=== PATIENT | female | born 2000 | race Caucasian/White ===

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

== ENCOUNTER 2018-01-24 13:21 | Emergency (ER) | payer OTHER ==
[~2018-01-24] VITALS: Ht 170.2 cm; Wt 67.6 kg
[~2018-01-24 13:21] MED LIST: CEPH-264 PO
[2018-01-24 13:28] VITALS: BP 135/79
[2018-01-24] MEDS ORDERED: ONDANSETRON ODT 4 MG TAB.RAPDIS ONE (13:43)
[2018-01-24 14:13] LABS: BILIRUBIN,URINE NEG (NEG); CLARITY,URINE CLEAR; COLOR,URINE STRAW; GLUCOSE,URINE NEG (NEG)
[2018-01-24 14:14] LABS: NITRITE,URINE NEG (NEG); UROBILINOGEN,URINE 0.2 mg/dL (0.2 mg/dL)
[2018-01-24] MEDS ORDERED: ONDANSETRON ODT 4 MG TAB.RAPDIS PO ONE (14:15)
[2018-01-24] MEDS ORDERED: ONDA4TAB7 PO (14:49)
--- NOTE | 2018-01-24 14:49 | PHYS DOC ---
Past History Past Medical History: No Pertinent History Past Surgical History: No Surgical History Alcohol Use: None Drug Use: None Adult General Chief Complaint Chief Complaint: NAUSEA/VOMITING/DIARRHEA HPI HPI Patient is a 17 year old female who presents with in cough and episodes of nausea and vomiting and diarrhea since yesterday. Patient states she had several episodes of nausea and vomiting yesterday that improved today and complaining of pain of epigastric and throat during episodes of vomiting. Patient denies sick contact, fever and chills, urinary symptoms, . Patient states she was not able to tolerated oral intake today. Review of Systems Review of Systems Constitutional: Denies fever or chills [] Eyes: Denies change in visual acuity, redness, or eye pain [] HENT: Denies nasal congestion or sore throat [] Respiratory: Denies cough or shortness of breath [] Cardiovascular: No additional information not addressed in HPI [] GI: Reports abdominal pain, nausea, vomiting, diarrhea [] : Denies dysuria or hematuria [] Musculoskeletal: Denies back pain or joint pain [] Integument: Denies rash or skin lesions [] Neurologic: Denies headache, focal weakness or sensory changes [] Endocrine: Denies polyuria or polydipsia [] All other systems were reviewed and found to be within normal limits, except as documented in this note. Current Medications Current Medications Current Medications Medications (Trade) Dose Ordered Sig/Carina Start Time Stop Time Status Last Admin Dose Admin Ondansetron HCl (Zofran Odt) 4 mg STK-MED ONCE 01/24/18 13:43 01/24/18 13:44 DC Allergies Allergies Allergies Coded Allergies Type Severity Reaction Last Updated Verified No Known Drug Allergies 11/15/17 No Physical Exam Physical Exam Constitutional: Well developed, well nourished, mild distress, non-toxic appearance. [] HENT: Normocephalic, atraumatic, oropharynx moist, no oral exudates, nose normal. [] Eyes: PERRLA, EOMI, conjunctiva normal, no discharge. [] Neck: Normal range of motion, no tenderness, supple, no stridor. [] Cardiovascular:Heart rate regular rhythm, no murmur [] Lungs & Thorax: Bilateral breath sounds clear to auscultation [] Abdomen: Bowel sounds normal, soft, no tenderness, no masses, no pulsatile masses. [] Skin: Warm, dry, no erythema, no rash. [] Back: No tenderness, no CVA tenderness. [] Extremities: No tenderness, no cyanosis, no clubbing, ROM intact, no edema. [] Neurologic: Alert and oriented X 3, normal motor function, normal sensory function, no focal deficits noted. [] Psychologic: Affect normal, judgement normal, mood normal. [] Current Patient Data Vital Signs Vital Signs Date Time Temp Pulse Resp B/P (MAP) Pulse Ox O2 Delivery O2 Flow Rate FiO2 01/24/18 13:28 98.7 86 18 100 Room Air Lab Results Laboratory Tests Test 01/24/18 13:59 Urine Collection Type Unknown Urine Color Straw Urine Clarity Clear Urine pH 7.0 Urine Specific [place] 1.010 Urine Protein Neg (NEG-TRACE) Urine Glucose (UA) Neg mg/dL (NEG) Urine Ketones (Stick) Neg mg/dL (NEG) Urine Blood Mod (NEG) Urine Nitrite Neg (NEG) Urine Bilirubin Neg (NEG) Urine Urobilinogen Dipstick 0.2 mg/dL (0.2 mg/dL) Urine Leukocyte Esterase Neg (NEG) EKG EKG [] Radiology/Procedures Radiology/Procedures [] Course & Med Decision Making Course & Med Decision Making Pertinent Labs reviewed. (See chart for details) Evaluation of patient in ER showed 17-year-old female patient with complaining of episodes of nausea and vomiting and diarrhea since yesterday that getting better today but still was not able to tolerate oral intake. Patient had unremarkable physical exam and nontender abdomen. Patient treated with sublingual Zofran with improvement of her condition. Patient tolerated oral intake in ER. Plan discharge patient home to diagnose of viral gastroenteritis. Prescription for Zofran was given. Dragon Disclaimer Dragon Disclaimer This electronic medical record was generated, in whole or in part, using a voice recognition dictation system. Departure Departure: Impression: Primary Impression: Acute gastroenteritis Disposition: HOME, SELF-CARE (at 1447) Condition: IMPROVED Referrals: PCP,UNKNOWN (PCP) Patient Instructions: Viral Gastroenteritis Additional Instructions: Drink plenty of liquids Follow-up with your primary care physician in 3-5 days Return to ER if not getting better May take [id number] Imodium as needed for diarrhea Scripts Ondansetron Hcl (ZOFRAN) 4 Mg Tablet 1 TAB PO Q6HRS for nausea and vomiting, #12 TAB Prov: KRYSTAL MCGEE MD 01/24/18 KRYSTAL MCGEE MD Jan 24, 2018 14:49
== END 2018-01-24 14:52 | disposition home or self-care (01) ==
LOC: ER 13:21
DX: K52.9 Noninfective gastroenteritis and colitis, unspecified (principal)
CPT/HCPCS: 81003; 99283; Q0162

== ENCOUNTER 2018-02-05 08:03 | Emergency (ER) | payer OTHER ==
[~2018-02-05] VITALS: Ht 170.2 cm; Wt 65.9 kg
[~2018-02-05 08:03] MED LIST changes: +ONDA4TAB7 PO
[2018-02-05 08:54] LABS: INFLUENZA A PATIENT NEGATIVE (NEGATIVE); INFLUENZA B PATIENT NEGATIVE (NEGATIVE)
--- NOTE | 2018-02-05 08:56 | PHYS DOC ---
Past History Past Medical History: No Pertinent History Past Surgical History: No Surgical History Alcohol Use: None Drug Use: None Adult General Chief Complaint Chief Complaint: FLU SYMPTOM HPI HPI Patient is a 17-year-old female who presents with complaint of fever, body aches , chills, dry cough, nasal congestion and sore throat for the last 3 days. Patient states that she recently had been treated for gastroenteritis. Patient states that fever has been as high as 102 at home and states that fever was not as bad today. She denies any further vomiting or diarrhea. She states that nothing is improving her symptoms. Review of Systems Review of Systems Constitutional: Complains of fever and chills [] HENT: Complains of congestion and sore throat [] Respiratory: Complains of cough without shortness of breath [] Cardiovascular: No additional information not addressed in HPI [] GI: Denies abdominal pain, nausea, vomiting or diarrhea [] Musculoskeletal: [place] of body aches [] Allergies Allergies Allergies Coded Allergies Type Severity Reaction Last Updated Verified No Known Drug Allergies 11/15/17 No Physical Exam Physical Exam Constitutional: Well developed, well nourished, no acute distress, non-toxic appearance. [] HENT: Normocephalic, atraumatic, bilateral external ears normal, oropharynx moist, no oral exudates, nose normal. [] Eyes: PERRLA, EOMI, conjunctiva normal, no discharge. [] Neck: Normal range of motion, no tenderness, supple, no stridor. [] Cardiovascular: Regular rate and rhythm, no murmur [] Lungs & Thorax: Bilateral breath sounds clear to auscultation [] Neurologic: Alert and oriented X 3. [] Current Patient Data Vital Signs Vital Signs Date Time Temp Pulse Resp B/P (MAP) Pulse Ox O2 Delivery O2 Flow Rate FiO2 02/05/18 08:05 99.2 106 20 98 Room Air EKG EKG [] Radiology/Procedures Radiology/Procedures [] Course & Med Decision Making Course & Med Decision Making Pertinent Labs and Imaging studies reviewed. (See chart for details) [] Dragon Disclaimer Dragon Disclaimer This electronic medical record was generated, in whole or in part, using a voice recognition dictation system. Departure Departure: Impression: Primary Impression: Upper respiratory infection Disposition: HOME, SELF-CARE Condition: STABLE Referrals: MILADYS ROMANO PA-C (PCP) Patient Instructions: Upper Respiratory Infection, Adult Scripts Naproxen (NAPROSYN) 500 Mg Tablet 1 TAB PO BID PRN for PAIN, #20 TAB Prov: CHINMAY PARADA Jr. DO 02/05/18 Benzonatate (TESSALON PERLE) 100 Mg Capsule 1 CAP PO TID PRN for COUGH, #21 CAP Prov: CHINMAY PARADA Jr. DO 02/05/18 Problem Qualifiers Primary Impression: Upper respiratory infection URI type: unspecified URI Qualified Codes: J06.9 - Acute upper respiratory infection, unspecified CHINMAY PARADA Jr. DO Feb 05, 2018 08:55
[2018-02-05] MEDS ORDERED: BENZ100C PO (08:58)
[2018-02-05] MEDS ORDERED: NAPR-683 PO (08:58)
[2018-02-05 09:12] VITALS: BP 109/66
== END 2018-02-05 09:14 | disposition home or self-care (01) ==
LOC: ER 08:03
DX: J06.9 Acute upper respiratory infection, unspecified (principal)
CPT/HCPCS: 87804; 99283

== ENCOUNTER 2018-06-27 10:30 | Emergency (ER) | payer OTHER ==
[~2018-06-27] VITALS: Ht 170.2 cm; Wt 65.8 kg
[~2018-06-27 10:30] MED LIST changes: +BENZ100C PO; +NAPR-683 PO
[2018-06-27 10:35] VITALS: BP 129/66
[2018-06-27 10:57] LABS: BASO % 0 % (0-3); EOS % 0 % (0-3); HEMATOCRIT 39.3 % (36.0-47.0); LYMPH # 0.5 x10^3/uL (1.0-4.8); LYMPH % 5 % (24-48); MEAN CORPUSCULAR HEMOGLOBIN 29 pg (25-35); MEAN CORPUSCULAR HGB CONC 33 g/dL (31-37); MEAN CORPUSCULAR VOLUME 87 fL (79-100); MONO # 0.9 x10^3/uL (0.0-1.1); MONO % 10 % (0-9); NEUT # 7.8 x10^3uL (1.8-7.7); NEUT % 84 % (31-73); PLATELET COUNT 209 x10^3/uL (140-400); RED BLOOD COUNT 4.52 x10^6/uL (3.50-5.40); WHITE BLOOD COUNT 9.3 x10^3/uL (4.0-11.0)
[2018-06-27] MEDS ORDERED: ACETAMINOPHEN 500 MG TABLET PO ONE (11:10)
[2018-06-27 11:13] LABS: ALBUMIN 3.6 g/dL (3.4-5.0); ALBUMIN/GLOBULIN RATIO 0.9 (1.0-1.7); CALCIUM 8.8 mg/dL (8.5-10.1); GFR 71.4; POTASSIUM 3.5 mmol/L (3.5-5.1); TOTAL BILIRUBIN 0.7 mg/dL (0.2-1.0); TOTAL PROTEIN 7.4 g/dL (6.4-8.2)
--- NOTE | 2018-06-27 11:24 | RAD ---
Portable chest, 06/27/2018: HISTORY: Cough The heart size and pulmonary vascularity are normal. A small dense nodule in the left suprahilar region is probably a granuloma. No acute infiltrate is seen. There is no evidence of pleural fluid. IMPRESSION: 1. Probable calcified granuloma in the left upper lobe. 2. No acute infiltrates. Electronically signed by: Tony Schmidt MD (06/27/2018 11:21 AM) [facility]
--- NOTE | 2018-06-27 11:30 | PHYS DOC ---
Past History Past Medical History: No Pertinent History Past Surgical History: No Surgical History Alcohol Use: None Drug Use: None Adult General Chief Complaint Chief Complaint: FEVER HPI HPI 17-year-old female presents with a fever. She states she's developed fever last night it's been constant through the day today. She does describe a sore throat runny nose dry cough and some body aches. She denies any neck pain. She's been eating drinking voiding and stooling normally. She denies any dysuria or gross hematuria. She states her immunizations are up-to-date she is in the [employer].[] Review of Systems Review of Systems Constitutional: Per history of present illness[] Eyes: Denies change in visual acuity, redness, or eye pain [] HENT: Reports nasal congestion and a sore throat[] Respiratory: Reports a dry cough[] Cardiovascular: No additional information not addressed in HPI [] GI: Denies abdominal pain, nausea, vomiting, bloody stools or diarrhea [] : Denies dysuria or hematuria [] Musculoskeletal: Denies back pain or joint pain [] Integument: Denies rash or skin lesions [] Neurologic: Denies headache, focal weakness or sensory changes [] Endocrine: Denies polyuria or polydipsia [] All other systems were reviewed and found to be within normal limits, except as documented in this note. Current Medications Current Medications Current Medications Medications (Trade) Dose Ordered Sig/[facility] Start Time Stop Time Status Last Admin Dose Admin Acetaminophen (Tylenol) 1,000 mg 1X ONCE 06/27/18 11:10 06/27/18 11:11 DC 06/27/18 10:59 1,000 MG Allergies Allergies Allergies Coded Allergies Type Severity Reaction Last Updated Verified No Known Drug Allergies 11/15/17 No Physical Exam Physical Exam Constitutional: Well developed, well nourished, appears acutely ill but nontoxi c[] HENT: Normocephalic, atraumatic, bilateral external ears normal, oropharynx moist, no oral exudates, nose normal. [] Eyes: PERRLA, EOMI, conjunctiva normal, no discharge. [] Neck: Normal range of motion, no tenderness, supple, no stridor, negative meningismus. [] Cardiovascular:Heart rate regular rhythm, no murmur [] Lungs & Thorax: Bilateral breath sounds clear to auscultation [] Abdomen: Bowel sounds normal, soft, no tenderness, no masses, no pulsatile masses. [] Skin: Warm, dry, no erythema, no rash. [] Back: No tenderness, no CVA tenderness. [] Extremities: No tenderness, no cyanosis, no clubbing, ROM intact, no edema. [] Neurologic: Alert and oriented X 3, normal motor function, normal sensory function, no focal deficits noted. [] Psychologic: Affect normal, judgement normal, mood normal. [] Current Patient Data Vital Signs Vital Signs Date Time Temp Pulse Resp B/P (MAP) Pulse Ox O2 Delivery O2 Flow Rate FiO2 06/27/18 10:35 103.1 122 22 99 Room Air Lab Results Laboratory Tests Test 06/27/18 10:44 White Blood Count 9.3 x10^3/uL (4.0-11.0) Red Blood Count 4.52 x10^6/uL (3.50-5.40) Hemoglobin 13.0 g/dL (12.0-15.5) Hematocrit 39.3 % (36.0-47.0) Mean Corpuscular Volume 87 fL (79-100) Mean Corpuscular Hemoglobin 29 pg (25-35) Mean Corpuscular Hemoglobin Concent 33 g/dL (31-37) Red Cell Distribution Width 13.0 % (11.5-14.5) Platelet Count 209 x10^3/uL (140-400) Neutrophils (%) (Auto) 84 % (31-73) H Lymphocytes (%) (Auto) 5 % (24-48) L Monocytes (%) (Auto) 10 % (0-9) H Eosinophils (%) (Auto) 0 % (0-3) Basophils (%) (Auto) 0 % (0-3) Neutrophils # (Auto) 7.8 x10^3uL (1.8-7.7) H Lymphocytes # (Auto) 0.5 x10^3/uL (1.0-4.8) L Monocytes # (Auto) 0.9 x10^3/uL (0.0-1.1) Eosinophils # (Auto) 0.0 x10^3/uL (0.0-0.7) Basophils # (Auto) 0.0 x10^3/uL (0.0-0.2) Sodium Level 135 mmol/L (136-145) L Potassium Level 3.5 mmol/L (3.5-5.1) Chloride Level 100 mmol/L (98-107) Carbon Dioxide Level 23 mmol/L (21-32) Anion Gap 12 (6-14) Blood Urea Nitrogen 11 mg/dL (7-20) Creatinine 1.0 mg/dL (0.6-1.0) Estimated GFR (Cockcroft-Gault) 71.4 BUN/Creatinine Ratio 11 (6-20) Glucose Level 136 mg/dL (70-99) H Calcium Level 8.8 mg/dL (8.5-10.1) Total Bilirubin 0.7 mg/dL (0.2-1.0) Aspartate Amino Transferase (AST) 73 U/L (15-37) H Alanine Aminotransferase (ALT) 38 U/L (14-59) Alkaline Phosphatase 72 U/L (46-116) Total Protein 7.4 g/dL (6.4-8.2) Albumin 3.6 g/dL (3.4-5.0) Albumin/Globulin Ratio 0.9 (1.0-1.7) L EKG EKG [] Radiology/Procedures Radiology/Procedures [] Impressions: REASON: fever, COUGH x 3 DAYS PROCEDURE: CHEST AP ONLY Portable chest, 06/27/2018: HISTORY: Cough The heart size and pulmonary vascularity are normal. A small dense nodule in the left suprahilar region is probably a granuloma. No acute infiltrate is seen. There is no evidence of pleural fluid. IMPRESSION: 1. Probable calcified granuloma in the left upper lobe. 2. No acute infiltrates. Course & Med Decision Making Course & Med Decision Making Pertinent Labs and Imaging studies reviewed. (See chart for details) [ED course: Evaluation reveals a 17-year-old female present with a fever and upper respiratory type symptoms. Her strep test a flu test were all negative. I believe her fever is related to her upper respiratory/viral syndrome symptoms. A urinalysis was also checked and it did show a few white cells and some bacteria so go ahead and treat her with antibiotics for the urinary tract infection. She did feel much better after fluids Toradol and Tylenol while she was in the emergency department.] Dragon Disclaimer Dragon Disclaimer This electronic medical record was generated, in whole or in part, using a voice recognition dictation system. Departure Departure: Impression: Primary Impression: Viral upper respiratory infection Additional Impression: Urinary tract infection Disposition: 01 HOME, SELF-CARE Condition: IMPROVED Referrals: MILADYS ROMANO PA-C (PCP) Patient Instructions: Urinary Tract Infection, Viral Infections, Viral Pharyngitis Additional Instructions: Take Tylenol or Motrin for your fever. Return to the emergency department with any new or concerning symptoms Scripts Cephalexin (CEPHALEXIN) 500 Mg Tablet 1 TAB PO TID for urinary tract infection, #15 TAB Prov: CAM NAIR DO 06/27/18 Problem Qualifiers Additional Impression: Urinary tract infection Urinary tract infection type: acute cystitis Hematuria presence: without hematuria Qualified Codes: N30.00 - Acute cystitis without hematuria CAM NAIR DO June 27, 2018 11:30
[2018-06-27 12:14] LABS: INFLUENZA A PATIENT NEGATIVE (NEGATIVE); INFLUENZA B PATIENT NEGATIVE (NEGATIVE)
[2018-06-27 12:45] LABS: BACTERIA,URINE MOD /HPF (0-FEW); BILIRUBIN,URINE NEG (NEG); CLARITY,URINE CLOUDY; COLOR,URINE YELLOW; GLUCOSE,URINE NEG (NEG); NITRITE,URINE NEG (NEG); RBC,URINE OCC /HPF (0-2); UROBILINOGEN,URINE 0.2 mg/dL (0.2 mg/dL)
[2018-06-27 12:46] LABS: SQUAMOUS EPITHELIAL CELL,UR MOD /LPF
[2018-06-27] MEDS ORDERED: CEPH500T PO (12:52)
== END 2018-06-27 13:21 | disposition home or self-care (01) ==
LOC: ER 10:30
DX: J06.9 Acute upper respiratory infection, unspecified (principal); B97.89 Other viral agents as the cause of diseases classified elsewhere; N30.00 Acute cystitis without hematuria
CPT/HCPCS: 36415; 71045; 80053; 81001; 85025; 87070; 87086; 87804; 87880; 99285

== ENCOUNTER 2018-08-29 16:03 | Emergency (ER) | payer OTHER ==
[~2018-08-29] VITALS: Ht 170.2 cm; Wt 66.0 kg
[~2018-08-29 16:03] MED LIST changes: +CEPH500T PO
[2018-08-29 16:24] VITALS: BP 132/77
--- NOTE | 2018-08-29 16:32 | PHYS DOC ---
Past History Past Medical History: No Pertinent History Past Surgical History: No Surgical History Alcohol Use: None Drug Use: None Adult General Chief Complaint Chief Complaint: VAGINAL PROBLEM HPI HPI Patient is a 17-year-old female who presents with complaint of urinary discomfort and frequency for the last couple of days. She denies any fever, nausea, vomiting or diarrhea. She denies any abdominal pain or back pain.[] Review of Systems Review of Systems Constitutional: Denies fever or chills [] Respiratory: Denies cough or shortness of breath [] Cardiovascular: No additional information not addressed in HPI [] GI: Denies abdominal pain, nausea, vomiting or diarrhea [] : Positive dysuria[] Musculoskeletal: Denies back pain or joint pain [] Allergies Allergies Allergies Coded Allergies Type Severity Reaction Last Updated Verified No Known Drug Allergies 11/15/17 No Physical Exam Physical Exam Constitutional: Well developed, well nourished, no acute distress, non-toxic appearance. [] Cardiovascular:Heart rate regular rhythm, no murmur [] Lungs & Thorax: Bilateral breath sounds clear to auscultation [] Abdomen: Bowel sounds normal, soft, no tenderness. [] Skin: Warm, dry, no erythema, no rash. [] Current Patient Data Vital Signs Vital Signs Date Time Temp Pulse Resp B/P (MAP) Pulse Ox O2 Delivery O2 Flow Rate FiO2 08/29/18 16:24 99.0 80 16 100 Room Air EKG EKG [] Radiology/Procedures Radiology/Procedures [] Course & Med Decision Making Course & Med Decision Making Pertinent Labs and Imaging studies reviewed. (See chart for details) [] Dragon Disclaimer Dragon Disclaimer This electronic medical record was generated, in whole or in part, using a voice recognition dictation system. Departure Departure: Impression: Primary Impression: UTI (urinary tract infection) Disposition: HOME, SELF-CARE Condition: STABLE Referrals: MILADYS ROMANO PA-C (PCP) Patient Instructions: Urinary Tract Infection Scripts Phenazopyridine Hcl (PYRIDIUM) 100 Mg Tablet 100 MG PO TID PRN for URINARY PAIN, #12 TAB Prov: CHINMAY PARADA Jr. DO 08/29/18 Sulfamethoxazole/Trimethoprim (BACTRIM DS TABLET) 1 Each Tablet 1 TAB PO BID for infection, #14 TAB Prov: CHINMAY PARADA Jr. DO 08/29/18 Problem Qualifiers Primary Impression: UTI (urinary tract infection) Urinary tract infection type: site unspecified Hematuria presence: without hematuria Qualified Codes: N39.0 - Urinary tract infection, site not specified CHINMAY PARADA Jr. DO Aug 29, 2018 16:32
[2018-08-29 16:56] LABS: BILIRUBIN,URINE NEG (NEG); CLARITY,URINE CLOUDY; COLOR,URINE YELLOW; GLUCOSE,URINE NEG (NEG)
[2018-08-29 16:57] LABS: BACTERIA,URINE MOD /HPF (0-FEW); NITRITE,URINE NEG (NEG); SQUAMOUS EPITHELIAL CELL,UR MOD /LPF; UROBILINOGEN,URINE 0.2 mg/dL (0.2 mg/dL)
[2018-08-29] MEDS ORDERED: SULF1TAB24 PO (17:16)
[2018-08-29] MEDS ORDERED: PHEN100T82 PO (17:16)
== END 2018-08-29 17:24 | disposition home or self-care (01) ==
LOC: ER 16:03
DX: N39.0 Urinary tract infection, site not specified (principal)
CPT/HCPCS: 81001; 81025; 87086; 99284

== ENCOUNTER 2018-11-16 19:32 | Emergency (ER) | payer OTHER ==
[~2018-11-16] VITALS: Ht 170.2 cm; Wt 66.0 kg
[~2018-11-16 19:32] MED LIST changes: +PHEN100T82 PO; +SULF1TAB24 PO
[2018-11-16 19:35] VITALS: BP 102/73
--- NOTE | 2018-11-16 20:43 | PHYS DOC ---
Past History Past Medical History: No Pertinent History Past Surgical History: No Surgical History Alcohol Use: None Drug Use: None Adult General Chief Complaint Chief Complaint: KNEE INJURY HPI HPI 18-year-old female presents with left knee pain. Patient was outside running and was on a patch funny sidewalk and she twisted her knee and fell to the ground. She heard a pop as she was falling. She now has left knee discomfort. She can walk, but has a limp. No previous knee injuries. She does not have any other complaints. Review of Systems Review of Systems Constitutional: Denies fever or chills [] Eyes: Denies change in visual acuity, redness, or eye pain [] HENT: Denies nasal congestion or sore throat [] Respiratory: Denies cough or shortness of breath [] Cardiovascular: No additional information not addressed in HPI [] GI: Denies abdominal pain, nausea, vomiting, bloody stools or diarrhea [] : Denies dysuria or hematuria [] Musculoskeletal: left knee pain[] Integument: Denies rash or skin lesions [] Neurologic: Denies headache, focal weakness or sensory changes [] Endocrine: Denies polyuria or polydipsia [] All other systems were reviewed and found to be within normal limits, except as documented in this note. Allergies Allergies Allergies Coded Allergies Type Severity Reaction Last Updated Verified No Known Drug Allergies 11/15/17 No Physical Exam Physical Exam Constitutional: Well developed, well nourished, no acute distress, non-toxic appearance. [] HENT: Normocephalic, atraumatic, bilateral external ears normal, oropharynx moist, no oral exudates, nose normal. [] Eyes: PERRLA, EOMI, conjunctiva normal, no discharge. [] Neck: Normal range of motion, no tenderness, supple, no stridor. [] Cardiovascular:Heart rate regular rhythm, no murmur [] Lungs & Thorax: Bilateral breath sounds clear to auscultation [] Abdomen: Bowel sounds normal, soft, no tenderness, no masses, no pulsatile masses. [] Skin: Warm, dry, no erythema, no rash. [] Back: No tenderness, no CVA tenderness. [] Extremities: Tenderness over medial left knee, solid and feel of ligaments, no significant swelling, no obvious deformity, no pain with varus and valgus stress. Negative anterior and posterior drawer[] Neurologic: Alert and oriented X 3, normal motor function, normal sensory function, no focal deficits noted. [] Psychologic: Affect normal, judgement normal, mood normal. [] EKG EKG [] Radiology/Procedures Radiology/Procedures [] Impressions: Preliminary interpretation left knee: No obvious fracture or dislocation. Course & Med Decision Making Course & Med Decision Making Pertinent Labs and Imaging studies reviewed. (See chart for details) The patient's knee x-rays negative for fracture dislocation. Based on my exam, I believe the patient sprained her knee. It is possible that she has a meniscus injury. I have advised supportive care at this time. She will take ibuprofen, rest, ice, and use compression for comfort if desired. If her condition does not rapidly improve the next couple of days, she should seek orthopedic consult for further evaluation. She is stable for discharge at this time. [] Dragon Disclaimer Dragon Disclaimer This electronic medical record was generated, in whole or in part, using a voice recognition dictation system. Departure Departure: Impression: Primary Impression: Left knee sprain Disposition: 01 HOME/RESIDENCE PRIOR TO ADM Condition: STABLE Referrals: MILADYS ROMANO PA-C (PCP) Patient Instructions: Medial Collateral Knee Ligament Sprain with Phase I Rehab-SportsMed Problem Qualifiers Primary Impression: Left knee sprain Encounter type: initial encounter Involved ligament of knee: medial collateral ligament Qualified Codes: S83.412A - Sprain of medial collateral ligament of left knee, initial encounter ESTEE MCMAHON DO Nov 16, 2018 20:43
--- NOTE | 2018-11-16 21:22 | RAD ---
KNEE LEFT 4V History: Twisted, heard a pop Comparison: None. Findings: 4 views of the left knee are submitted. No acute fracture or dislocation is identified by radiographs. Impression: 1. No acute osseous abnormality is identified by radiographs. Electronically signed by: Emmanuel Davis MD (11/16/2018 9:19 PM) [facility]
== END 2018-11-16 21:15 | disposition home or self-care (01) ==
LOC: ER 19:32
DX: S83.412A Sprain of medial collateral ligament of left knee, initial encounter (principal); W01.0XXA Fall on same level from slipping, tripping and stumbling without subsequent striking against object, initial encounter; Y93.02 Activity, running; Y92.480 Sidewalk as the place of occurrence of the external cause; Y99.8 Other external cause status
CPT/HCPCS: 73564; 99284

== ENCOUNTER 2019-09-21 17:08 | Emergency (ER) | payer OTHER ==
[~2019-09-21] VITALS: Ht 170.2 cm; Wt 68.7 kg
--- NOTE | 2019-09-21 17:27 | PHYS DOC ---
Past History Past Medical History: No Pertinent History, Other Additional Past Medical Histor: L KNEE TORN LIGAMENT (ALTA BAUTISTA DO) Past Surgical History: No Surgical History (ALTA BAUTISTA DO) Alcohol Use: None Drug Use: None (ALTA BAUTISTA DO) Adult General Chief Complaint Chief Complaint: NAUSEA/VOMITING/DIARRHEA HPI HPI Patient is a [age] year old [sex] who presents with [] (LILYALTA ) HPI Patient is a 18 yr old female who presents above hx and complaints of GI symptoms of diarrhea. Pt. states she has had several stools today which are loose. Also concerned because she is for the first time. Patient denies any intake of bad food. No recent travel. Is on city water. Patient states symptoms started after eating chicken yesterday. No one else got sick eating the same food. No history of significant ill contacts. No history immunosuppression. Patient is on vitamins. Has not follow-up with an OB yet. Patient follows at [facility] for care. There is no one in the family unit has traveled or been overseas recently. No animal contacts. Patient is normally healthy. Patient does have a follow-up appointment with MEDICAL RECORDS TECHNICIAN on Saturday. Patient has not had any contact with individuals with GI illnesses such as penitentiary patients or medical facilities. No history of C. difficile. No history of family history of colitis or inflammatory bowel disease. No history of vaginal bleeding. No history of STDs. Has had 3 lifetime sexual partners. (DAREK QUINTERO MD) Review of Systems Review of Systems Constitutional: Denies fever or chills [] Eyes: Denies change in visual acuity, redness, or eye pain [] HENT: Denies nasal congestion or sore throat [] Respiratory: Denies cough or shortness of breath [] Cardiovascular: No additional information not addressed in HPI [] GI: Denies abdominal pain, nausea, vomiting, bloody stools or diarrhea [] : Denies dysuria or hematuria [] Musculoskeletal: Denies back pain or joint pain [] Integument: Denies rash or skin lesions [] Neurologic: Denies headache, focal weakness or sensory changes [] Endocrine: Denies polyuria or polydipsia [] All other systems were reviewed and found to be within normal limits, except as documented in this note. (ALTA BAUTISTA DO) Review of Systems Complaints of abdomen discomfort- diarrhea stools. (DAREK QUINTERO MD) Family History Family History Noncontributory (DAREK QUINTERO MD) Current Medications Current Medications See nursing for home meds (DAREK QUINTERO MD) Allergies Allergies Allergies Coded Allergies Type Severity Reaction Last Updated Verified No Known Drug Allergies 11/15/17 No (ALTA BAUTISTA DO) Allergies No known drug allergies (DAREK QUINTERO MD) Physical Exam Physical Exam Constitutional: Well developed, well nourished, no acute distress, non-toxic appearance. [] HENT: Normocephalic, atraumatic, bilateral external ears normal, oropharynx moist, no oral exudates, nose normal. [] Eyes: PERRLA, EOMI, conjunctiva normal, no discharge. [] Neck: Normal range of motion, no tenderness, supple, no stridor. [] Cardiovascular:Heart rate regular rhythm, no murmur [] Lungs & Thorax: Bilateral breath sounds clear to auscultation [] Abdomen: Bowel sounds normal, soft, no tenderness, no masses, no pulsatile masses. [] Skin: Warm, dry, no erythema, no rash. [] Back: No tenderness, no CVA tenderness. [] Extremities: No tenderness, no cyanosis, no clubbing, ROM intact, no edema. [] Neurologic: Alert and oriented X 3, normal motor function, normal sensory function, no focal deficits noted. [] Psychologic: Affect normal, judgement normal, mood normal. [] (ALTA BAUTISTA DO) Physical Exam Re-exam at shift change 1730. No acute findings,other than hyperactive bowel sounds. Mild rebound to epigastric area. No psoas. No edema. + 2 DTR patella. (DAREK QUINTERO MD) EKG EKG [] (ALTA BAUTISTA DO) Radiology/Procedures Radiology/Procedures [] (ALTA BAUTISTA DO) Course & Med Decision Making Course & Med Decision Making Patient to stay on a clear fluid diet only for the next 2 days. No solids or milk products.. Patient take Tylenol for discomfort. Continue vitamins. Follow-up stool cultures. Return if any concerns. Keep follow-up with MEDICAL RECORDS TECHNICIAN this coming Saturday. Impression: 1. Gravid-early beta-hCG is 38 2. Blood type O+ 3. Hemoglobin 13.9 4. Diarrhea-suspect viral (DAREK QUINTERO MD) Dragon Disclaimer Dragon Disclaimer This electronic medical record was generated, in whole or in part, using a voice recognition dictation system. (ALTA BAUTISTA DO) Departure Departure: Disposition: 01 HOME/RESIDENCE PRIOR TO ADM Condition: STABLE Referrals: MILADYS ROMANO PA-C (PCP) Scripts Oxycodone Hcl/Acetaminophen (PERCOCET 5-325 MG TABLET ) 1 Each Tablet 1 TAB PO PRN QID PRN for PAIN MDD 4 Tablet(s) for 30 Days, #30 TAB 0 Refills Prov: DAREK QUINTERO MD 09/21/19 Justification of Admission: Justification of Admission: Justification of Admission Dx: N/A (DAREK QUINTERO MD) Emmanuelon Disclaimer This chart was dictated in whole or in part using Voice Recognition software in a busy, high-work load, and often noisy Emergency Department environment. It may contain unintended and wholly unrecognized errors or omissions. (DAREK QUINTERO MD) Dragon Disclaimer This chart was dictated in whole or in part using Voice Recognition software in a busy, high-work load, and often noisy Emergency Department environment. It may contain unintended and wholly unrecognized errors or omissions. (ALTA BAUTISTA DO) ALTA BAUTISTA DO Sep 21, 2019 17:27 DAREK QUINTERO MD Sep 21, 2019 17:55
[2019-09-21] MEDS ORDERED: IV RINGERS SOLUTION,LACTATED 1,000 ML IV SCH (17:55)
[2019-09-21 18:57] LABS: BASO % 0 % (0-3); EOS % 0 % (0-3); HEMOGLOBIN 13.9 g/dL (12.0-15.5); LYMPH # 0.7 x10^3/uL (1.0-4.8); LYMPH % 11 % (24-48); MEAN CORPUSCULAR HEMOGLOBIN 30 pg (25-35); MEAN CORPUSCULAR HGB CONC 33 g/dL (31-37); MEAN CORPUSCULAR VOLUME 89 fL (79-100); MONO # 0.4 x10^3/uL (0.0-1.1); MONO % 6 % (0-9); NEUT # 5.6 x10^3uL (1.8-7.7); NEUT % 84 % (31-73); PLATELET COUNT 202 x10^3/uL (140-400); RED CELL DISTRIBUTION WIDTH 13.8 % (11.5-14.5); WHITE BLOOD COUNT 6.7 x10^3/uL (4.0-11.0)
[2019-09-21 19:04] LABS: CALCIUM 8.8 mg/dL (8.5-10.1); CREATININE 0.9 mg/dL (0.6-1.0); GFR 79.8; POTASSIUM 3.6 mmol/L (3.5-5.1)
[2019-09-21 19:08] LABS: ALBUMIN 4.2 g/dL (3.4-5.0); DIRECT BILIRUBIN 0.2 mg/dL (0.0-0.2); MAGNESIUM 1.9 mg/dL (1.8-2.4); TOTAL PROTEIN 7.6 g/dL (6.4-8.2)
[2019-09-21 19:31] LABS: BARBITURATES NEG (NEG); BENZODIAZEPINES NEG (NEG); CANNABINOIDS NEG (NEG); COCAINE NEG (NEG); METHADONE NEG (NEG); OPIATES NEG (NEG); PHENCYCLIDINE NEG (NEG)
[2019-09-21 19:33] LABS: BACTERIA,URINE FEW /HPF (0-FEW); BILIRUBIN,URINE NEG (NEG); CLARITY,URINE HAZY; COLOR,URINE YELLOW; GLUCOSE,URINE NEG (NEG); NITRITE,URINE NEG (NEG); SQUAMOUS EPITHELIAL CELL,UR MANY /LPF; UROBILINOGEN,URINE 0.2 mg/dL (0.2 mg/dL)
[2019-09-21 19:34] LABS: AMPHETAMINE/METHAMPHETAMINE NEG (NEG)
[2019-09-21 20:11] VITALS: BP 118/88
[2019-09-21] MEDS ORDERED: OXYC1TAB15 PO (20:14)
== END 2019-09-21 20:27 | disposition home or self-care (01) ==
LOC: ER 17:08
DX: O26.891 Other specified pregnancy related conditions, first trimester (principal); R19.7 Diarrhea, unspecified; Z3A.01 Less than 8 weeks gestation of pregnancy
CPT/HCPCS: 36415; 80048; 80076; 80307; 81001; 82550; 83690; 83735; 84443; 84484; 84702; 85025; 85610; 85730; 86900; 86901; 87086; 87493; 96360; 96361; 99283; J7120

== ENCOUNTER 2019-09-23 22:12 | Emergency (ER) | payer OTHER ==
[~2019-09-23] VITALS: Ht 170.2 cm; Wt 68.7 kg
[~2019-09-23 22:12] MED LIST changes: +OXYC1TAB15 PO
--- NOTE | 2019-09-23 22:39 | PHYS DOC ---
Past History Past Medical History: No Pertinent History, Other Additional Past Medical Histor: L KNEE TORN LIGAMENT Past Surgical History: No Surgical History Alcohol Use: None Drug Use: None General Adult EDM: Chief Complaint: VAGINAL BLEEDING HPI: HPI: ".. I am still having bleeding and some cramping...." Patient is a 18 year old female who presents with above hx and complaints of threaten . Pt. seen on 09/21/19. At that time patient was diagnosed with threatened . Beta-hCG was 38, blood type was O+, hemoglobin was 13.9, also had some complaints of diarrhea felt to be viral. Ultrasound that time showed no heart rates and appeared to have intrauterine gestational sacs. [facility] [place]. Patient returns tonight with complaints of continued bleeding and some cramping.. See prior ED visit and my exam/history on 09/21/2019. Cultures from previous exam not currently available as yet. Review of Systems: Review of Systems: Constitutional: Denies fever or chills Eyes: Denies change in visual acuity HENT: Denies nasal congestion or sore throat Respiratory: Denies cough or shortness of breath Cardiovascular: Denies chest pain or edema GI: Complains of abdomen cramping/ abdominal pain, nausea. Vaginal bleeding. Denies, vomiting, bloody stools or diarrhea (prior history of diarrhea has resolved) : Denies dysuria Musculoskeletal: Denies back pain or joint pain Integument: Denies rash Neurologic: Denies headache, focal weakness or sensory changes Endocrine: Denies polyuria or polydipsia Lymphatic: Denies swollen glands Psychiatric: Denies depression or anxiety Heart Score: Risk Factors: Risk Factors: DM, Current or recent (<one month) smoker, HTN, HLP, family history of CAD, obesity. Risk Scores: Score 0 - 3: 2.5% MACE over next 6 weeks - Discharge Home Score 4 - 6: 20.3% MACE over next 6 weeks - Admit for Clinical Observation Score 7 - 10: 72.7% MACE over next 6 weeks - Early Invasive Strategies Family History: Family History: Noncontributory Current Medications: Current Meds: See nursing for home meds Allergies: Allergies: Allergies Coded Allergies Type Severity Reaction Last Updated Verified No Known Drug Allergies 11/15/17 No Physical Exam: PE: Constitutional: Well developed, well nourished, moderate acute distress, non- toxic appearance. [] HENT: Normocephalic, atraumatic, bilateral external ears normal, oropharynx moist, no oral exudates, nose normal. [] Eyes: PERRLA, EOMI, conjunctiva normal, no discharge. [] Neck: Normal range of motion, no tenderness, supple, no stridor. [] Cardiovascular:Heart rate regular rhythm, no murmur [] Lungs & Thorax: Bilateral breath sounds clear to auscultation [] Abdomen: Bowel sounds normal, soft, mild generalized lower abdomen tenderness, no masses, no pulsatile masses. [] Pelvic exam shows some increased bleeding from office. Office is still closed. No cervical motion tenderness. Rectal exam hard stool. Mild rebound to the lower abdomen. Skin: Warm, dry, no erythema, no rash. [] Back: No tenderness, no CVA tenderness. [] Extremities: No tenderness, no cyanosis, no clubbing, ROM intact, no edema. [] No psoas sign. Neurologic: Alert and oriented X 3, normal motor function, normal sensory function, no focal deficits noted. [] Psychologic: Affect anxious, judgement normal, mood depressed and tearful] EKG: EKG: [] Radiology/Procedures: Radiology/Procedures: [] Course & Med Decision Making: Course & Med Decision Making Pertinent Labs and Imaging studies reviewed. (See chart for details) Advised patient her beta-hCG is less than 5. Hemoglobin is 12. Patient to continue vitamins. Patient follow-up pending cultures. Patient follow-up with COUNTER CONTROL OPERATOR. Advised patient that she is in the process of miscarriage and may have further bleeding and maybe passage of tissue. Continue Tylenol for pain. Return if any concerns. Continue pad counts. Impression 1. demise 2. Miscarriage [] Dragon Disclaimer: Dragon Disclaimer: This electronic medical record was generated, in whole or in part, using a voice recognition dictation system. Departure Departure: Disposition: 01 HOME/RESIDENCE PRIOR TO ADM Condition: STABLE Referrals: MILADYS ROMANO PA-C (PCP) Justification of Admission: Justification of Admission: Justification of Admission Dx: N/A Dragon Disclaimer This chart was dictated in whole or in part using Voice Recognition software in a busy, high-work load, and often noisy Emergency Department environment. It may contain unintended and wholly unrecognized errors or omissions. DAREK QUINTERO MD Sep 23, 2019 22:39
[2019-09-23] MEDS ORDERED: IV RINGERS SOLUTION,LACTATED 1,000 ML IV SCH (22:41)
[2019-09-23 23:41] LABS: BASO % 0 % (0-3); EOS # 0.1 x10^3/uL (0.0-0.7); EOS % 2 % (0-3); HEMATOCRIT 36.1 % (36.0-47.0); LYMPH # 1.1 x10^3/uL (1.0-4.8); LYMPH % 17 % (24-48); MEAN CORPUSCULAR HEMOGLOBIN 30 pg (25-35); MEAN CORPUSCULAR HGB CONC 33 g/dL (31-37); MEAN CORPUSCULAR VOLUME 89 fL (79-100); MONO # 0.6 x10^3/uL (0.0-1.1); MONO % 9 % (0-9); NEUT # 4.6 x10^3uL (1.8-7.7); NEUT % 72 % (31-73); PLATELET COUNT 181 x10^3/uL (140-400); RED BLOOD COUNT 4.06 x10^6/uL (3.50-5.40); RED CELL DISTRIBUTION WIDTH 13.5 % (11.5-14.5); WHITE BLOOD COUNT 6.5 x10^3/uL (4.0-11.0)
[2019-09-23 23:47] LABS: BARBITURATES NEG (NEG); BENZODIAZEPINES NEG (NEG); CANNABINOIDS NEG (NEG); COCAINE NEG (NEG); METHADONE NEG (NEG); OPIATES NEG (NEG); PHENCYCLIDINE NEG (NEG)
[2019-09-23 23:48] LABS: CALCIUM 8.4 mg/dL (8.5-10.1); CREATININE 0.8 mg/dL (0.6-1.0); GFR 91.4; POTASSIUM 3.4 mmol/L (3.5-5.1)
[2019-09-23 23:50] LABS: AMPHETAMINE/METHAMPHETAMINE NEG (NEG)
[2019-09-24 00:05] LABS: BACTERIA,URINE FEW /HPF (0-FEW); BILIRUBIN,URINE NEG (NEG); CLARITY,URINE HAZY; COLOR,URINE YELLOW; GLUCOSE,URINE NEG (NEG); NITRITE,URINE NEG (NEG); RBC,URINE >40 /HPF (0-2); SQUAMOUS EPITHELIAL CELL,UR FEW /LPF; UROBILINOGEN,URINE 0.2 mg/dL (0.2 mg/dL)
[2019-09-24 01:20] VITALS: BP 124/66
[2019-09-26 00:07] LABS: CHLAMYDIA PROBE Negative (Negative)
== END 2019-09-24 01:45 | disposition home or self-care (01) ==
LOC: ER 22:12
DX: O36.4XX0 Maternal care for intrauterine death, not applicable or unspecified (principal); O03.9 Complete or unspecified spontaneous abortion without complication; R19.7 Diarrhea, unspecified; Z3A.00 Weeks of gestation of pregnancy not specified
CPT/HCPCS: 36415; 80048; 80307; 81001; 81025; 83735; 84702; 85025; 87086; 87491; 87591; 96360; 96361; 99285; J7120

== ENCOUNTER 2021-03-06 11:21 | Emergency (ER) | payer OTHER ==
[~2021-03-06] VITALS: Ht 170.2 cm; Wt 74.9 kg
[2021-03-06 11:39] VITALS: BP 124/66
[2021-03-06] MEDS ORDERED: IBUPROFEN 600 MG TABLET. PO ONE (12:00)
[2021-03-06 13:23] LABS: INFLUENZA A PATIENT NEGATIVE (NEGATIVE); INFLUENZA B PATIENT NEGATIVE (NEGATIVE)
[2021-03-06] MEDS ORDERED: BENZ-8 PO (13:23)
--- NOTE | 2021-03-06 13:23 | PHYS DOC ---
Past History Past Medical History: Other Additional Past Medical Histor: L KNEE TORN LIGAMENT (MAGGIE SCANLON) Past Surgical History: No Surgical History (MAGGIE SCANLON) Smoking: Non-smoker Alcohol Use: None Drug Use: None (MAGGIE SCANLON) General Adult EDM: Chief Complaint: CONGESTION HPI: HPI: Patient is a 20 year old female who presents with 2 day history of fever, headache, congestion, sore throat, cough. Patient states she has taken tylenol without significant symptom relief. She has been vaccinated against COVID-19. Patient denies weakness, sputum production. (MAGGIE SCANLON) Review of Systems: Review of Systems: ROS negative or noncontributory except as mentioned in HPI. (MAGGIE SCANLON) Current Medications: Current Meds: Current Medications Medications (Trade) Dose Ordered Sig/Carina Start Time Stop Time Status Last Admin Dose Admin Ibuprofen (Motrin) 600 mg 1X ONCE 03/06/21 12:00 03/06/21 12:01 DC 03/06/21 12:12 600 MG (MAGGIE SCANLON) Allergies: Allergies: Allergies Coded Allergies Type Severity Reaction Last Updated Verified No Known Drug Allergies 11/15/17 No (MAGGIE SCANLON) Physical Exam: PE: Constitutional: Well developed, well nourished, no acute distress, non-toxic appearance. HENT: Normocephalic, atraumatic, bilateral external ears normal, nose normal. Eyes: EOMI, conjunctiva normal, no discharge. Neck: Normal range of motion, no stridor. Skin: Warm, dry, no erythema, no rash. Extremities: No cyanosis, no clubbing, ROM intact, no edema. Neurologic: Alert and oriented x4, steady and symmetrical gait, no focal deficits noted. (MAGGIE SCANLON) Current Patient Data: Labs: Laboratory Tests Test 03/06/21 12:15 Influenza Type A (Rapid) Negative (NEGATIVE) Influenza Type B (Rapid) Negative (NEGATIVE) Vital Signs: Vital Signs Date Time Temp Pulse Resp B/P (MAP) Pulse Ox O2 Delivery O2 Flow Rate FiO2 03/06/21 11:39 101.3 106 20 124/66 (85) 97 Room Air Patient was given motrin in the department to address fever. (MAGGIE SCANLON) Heart Score: C/O Chest Pain: No (MAGGIE SCANLON) Course & Med Decision Making: Course & Med Decision Making Pertinent Labs and Imaging studies reviewed. (See chart for details) Patient is an otherwise healthy 20 year old female with concern for COVID-19. She presents with her , who had symptoms for two days prior to the start of her own. Patient diagnosed clinically with COVID-19, as her tested positive today and she is exhibiting symptoms. PCR swabs are no longer available here in the ER. Patient given supportive treatment instructions, isolation guidelines and return precautions. Patient understands and is agreeable to discharge plan. (MAGGIE SCANLON) Course & Med Decision Making I was the Attending physician on the above date of service of this patient. This patient was evaluated, examined, treated, and dispositioned from the emergency department by the mid-level practitioner. Although I was working at the time , no assistance was requested. Electronically signed, Alta Bautista DO (ALTA BAUTISTA DO) [place] Disclaimer: [place] Disclaimer: This electronic medical record was generated, in whole or in part, using a voice recognition dictation system. (MAGGIE SCANLON) Departure Departure: Impression: Primary Impression: Clinical diagnosis of COVID-19 Additional Impression: Close exposure to COVID-19 virus Disposition: 01 HOME / SELF CARE / HOMELESS Condition: STABLE Referrals: MILADYS ROMANO PA-C (PCP) Patient Instructions: Viral Syndrome Additional Instructions: Follow the following supportive treatment measures: - Cool mist humidifier with plain water at bedside while you sleep - Mucinex (guaifenesin) per box instructions - Tessalon perles (benzonatate) for cough, especially at night before bed - Alternate ibuprofen and acetaminophen every four hours for body aches/fever/headache - Use the incentive spirometer 5 times per day with 10 deep breaths each time. If antibiotics were prescribed, take them as directed. You have been tested for or diagnosed with COVID-19 infection. It is an infection caused by a new type of coronavirus. COVID-19 will cause cold-like or mild flu symptoms in most. It can cause more severe symptoms like problems breathing in some. There is no treatment for COVID-19. The body will clear the infection over time. Self-care will help to ease discomfort. Steps to Take: - Rest as needed. - Choose healthy foods including fruits and vegetables. Drink water throughout the day. - Get plenty of sleep each night. - If you smoke, try to quit. It may ease breathing. - Avoid alcohol. - Keep Others Healthy - The virus can spread to others. Droplets are released every time you sneeze or cough. The droplets can get into the mouth, nose, or eyes of people near you and lead to infection. To lower the chances of spreading COVID-19 to others: Stay at home until your doctor has said it is safe to leave. If you tested positive this will mean staying isolated until both of the following are true: - At least 5 days have passed since the start of illness. - You are free of fever for at least 72 hours without the use of medicine. During this time: - Avoid public areas, events, or transportation. Do not return to work or school until your doctor has said it is safe to do so. - Call ahead if you need to go to a medical center. Let them know you may have COVID-19. It will help them guide you where to go. They may also ask you to wear a facemask when you come to the office. - If you call for emergency medical services, let them know you may have COVID- 19. While at home: - Try to avoid close contact with others. Stay about 6 feet away. - If possible, spend most of your time in a separate room from others. - Use a face mask if you will be in close contact with others such as sharing a room or vehicle. - Have someone wipe down common surfaces in the home. Use household maintenance machinist every day on areas like doorknobs, counters, or sinks. - Cough or sneeze into a tissue. Throw the tissue away right after use. If a tissue is not available, cough or sneeze into your elbow. - Wash your hands often. Wash them after sneezing or coughing. Use soap and water and wash or at least 20 seconds. Alcohol based hand spinning frame cleaner can be used if soap and water is not available. - Do not prepare food for others. Avoid sharing personal items like forks, spoons, or toothbrushes. - Avoid close contact with pets while you are sick. There is no evidence of the virus passing to pets. This is a safety step until more is known about this virus. - Isolation can be frustrating. Social interaction can help. Keep in touch with friends and family through phone and tech options. You can still interact with others in your home, just keep a safe distance of about 6 feet. Follow-up: - Your doctors office will check in with you to see if there are any changes in your health. - You may be asked to keep track of symptoms to share with them. They will also let you know when you are clear to be in public again. Contact your doctor if your recovery is not going as you expect. Get emergency care if you have problems such as: - Trouble breathing with oxygen saturation <90% - Nonstop chest pain or pressure - Changes in awareness, confusion, or problems waking - Lips or face have bluish color - Worsening of symptoms If you think you have an emergency, call for emergency medical services right away. [facility] from [facility] Benzonatate (BENZONATATE) 100 Mg Capsule 1-2 CAP PO HS for cough, #20 CAP Prov: MAGGIE SCANLON 03/06/21 MAGGIE SCANLON Mar 06, 2021 13:23 ALTA BAUTISTA DO Mar 09, 2021 07:12
== END 2021-03-06 13:40 | disposition home or self-care (01) ==
LOC: ER 11:21
DX: U07.1 COVID-19 (principal)
CPT/HCPCS: 87804; 99283